=== PATIENT | female | born 1935 | race Caucasian/White ===

== ENCOUNTER 2016-09-01 22:20 | Observation (INO) | payer OTHER ==
[~2016-09-01] VITALS: Ht 167.6 cm; Wt 76.2 kg
[~2016-09-01 22:20] MED LIST: ANALGESIC325 MG PO; Atarax,Vistaril PO; BENTYL10 MG PO; CLONAZEPAM1 MG PO; ESCITALOPRAM OX20 MG PO; GLUTOFAC1 EACH PO; IRON27 MG PO; KLONOPIN1 MG PO; LEXAPRO PO; LIDODERM 5% P1 PATCH TD; Levothroid,Synthroid PO; MOTRIN600 MG PO; OMEPRAZOLE20 M3 PO; OSTEO-BIFLE1 CAPSULE PO; PERCOCET 5/31 TABLET PO; Prilosec PO; SERTRALINE HCL100 MG PO; SYNTHROID25 MCG PO; TOPROL XL100 MG PO; Vicodin,Lortab 5/500 PO; WELCHOL625 MG PO; ZESTRIL,PRINIV2.5 MG PO; Zoloft PO; [UNRECOGNIZED DRUG - OTHER]
[2016-09-01 22:55] LABS: MCHC 33.4 G/DL (30.0-36.0); MCV 95.7 FL (83-99); MEAN PLAT.VOLUME 11.3 uM^3 (9.5-12.4); PLATELET COUNT 269 K/uL (156-360); RBC DIS.WIDTH-CV 13.8 % (11.8-14.6); RBC DIS.WIDTH-SD 46.1 % (39-53); RED BLOOD COUNT 3.97 M/uL (3.80-5.20); WHITE BLOOD COUNT 9.9 K/uL (4.1-10.2)
[2016-09-01 23:05] LABS: CHLORIDE 102 mEq/L (99-109); POTASSIUM 3.5 mEq/L (3.7-5.4); SODIUM 136 mEq/L (136-147)
[2016-09-01 23:07] LABS: GLUCOSE 108 mg/dL (70-99)
[2016-09-01 23:09] LABS: ANION GAP 13 MEQ/L (2-14)
[2016-09-01 23:11] LABS: GFR ESTIMATE (CALCULATED) 56 mL/min/
[2016-09-01 23:12] LABS: UREA NITROGEN (BUN) 11 mg/dL (9-23)
[2016-09-01 23:47] LABS: TROP-I INTERPRETATION NEGATIVE; TROPONIN-I < 0.01 ng/mL (0.0-0.30)
[2016-09-02 00:57] LABS: INFLUENZA A VIRAL ANTIGEN NEGATIVE; INFLUENZA B VIRAL ANTIGEN NEGATIVE
[2016-09-02] MEDS ORDERED: OMEPRAZOLE40 M1 PO (01:19)
[2016-09-02] MEDS ORDERED: ATORVASTATIN CA10 MG PO (01:20)
[2016-09-02] MEDS ORDERED: TRAZODONE HCL50 MG PO (01:20)
[2016-09-02] MEDS ORDERED: SYNTHROID100 MCG PO (01:20)
[2016-09-02] MEDS ORDERED: BENADRYL25 MG PO (01:21)
[2016-09-02] MEDS ORDERED: [UNRECOGNIZED DRUG - OTHER] PO (01:21)
[2016-09-02] MEDS ORDERED: B12 PO (01:21)
[2016-09-02 02:50] VITALS: BP 158/85
[2016-09-02 04:38] VITALS: BP 155/77
[2016-09-02 08:53] VITALS: BP 167/79
[2016-09-02 12:47] VITALS: BP 145/65
[2016-09-02] MEDS ORDERED: PREDNISONE10 MG PO (15:08)
[2016-09-02] MEDS ORDERED: AZITHROMYCIN250 MG1 PO (15:09)
== END 2016-09-02 16:54 | disposition home or self-care (01) ==
LOC: EME 22:20 → EDOF 09-02 01:41 → 5WEST 09-02 02:23
PROVIDERS: Emergency Medicine
DX: J44.0 Chronic obstructive pulmonary disease with (acute) lower respiratory infection (principal); J20.9 Acute bronchitis, unspecified; R07.9 Chest pain, unspecified; Z86.19 Personal history of other infectious and parasitic diseases; Z96.643 Presence of artificial hip joint, bilateral; I12.9 Hypertensive chronic kidney disease with stage 1 through stage 4 chronic kidney disease, or unspecified chronic kidney disease; N18.3 Chronic kidney disease, stage 3 (moderate); E87.6 Hypokalemia; Z86.718 Personal history of other venous thrombosis and embolism; Z87.891 Personal history of nicotine dependence; Z79.891 Long term (current) use of opiate analgesic; Z88.6 Allergy status to analgesic agent; Z88.5 Allergy status to narcotic agent
CPT/HCPCS: 71020; 71275; 80048; 83605; 84484; 85027; 87040; 87502; 93005; 94640; 99202; 99281; 99285; G0378; J1644; J3480; J7512